=== PATIENT | male | born 1955 | race Caucasian/White ===

== ENCOUNTER 2018-07-15 01:02 | Emergency (ER) | payer SELFPAY ==
[2018-07-15 01:51] LABS: Bilirubin Negative (Negative); Blood, Urine Negative (Negative); Clarity CLEAR (Clear); Glucose, Urine (Dipstick) Negative (Negative); Leukocyte Negative (Negative); Nitrite Negative (Negative); Protein, Urine (Dipstick) Negative (Neg-Trace); Specific Gravity, Urine 1.002 (1.002-1.036); pH, Urine 6.5 (5.0-9.0)
[2018-07-15 02:08] LABS: ALT (SGPT) 71 U/L (8-55); AST (SGOT) 150 U/L (5-34); Alcohol 292 mg/dL (Less than 10); Alkaline Phosphatase 254 U/L (40-150); Anion Gap 12 mmol/L (10-20); BUN (Urea Nitrogen) 4 mg/dL (8.4-25.7); Bilirubin, Total 2.7 mg/dL (0.2-1.2); Calc. Creatinine Clearance 0 mL/min (70-130); Calcium 8.1 mg/dL (7.8-10.44); Carbon Dioxide 20 mmol/L (23-31); Chloride 107 mmol/L (98-107); Estimated GFR-MDRD Greater than 90; Globulin 5.1 g/dL (2.4-3.5); Glucose 118 mg/dL (80-115); Lipase 149 U/L (8-78); Magnesium 1.6 mg/dL (1.6-2.6); Potassium 3.7 mmol/L (3.5-5.1); Protein, Total 8.1 g/dL (5.8-8.1); Sodium 135 mmol/L (136-145)
[2018-07-15 02:12] LABS: CKMB 4.1 ng/mL (0-6.6); Troponin I Less than 0.010 ng/mL (< 0.028)
[2018-07-15 02:20] LABS: #Eosinphils 0.3 thou/uL (0.0-0.7); #Lymphocytes 2.6 thou/uL (1.20-3.40); #Monocytes 0.4 thou/uL (0.11-0.59); #Neutrophils 2.5 thou/uL (1.40-6.50); %Basophils 0.6 % (0.0-1.0); %Eosinophils 4.6 % (0.0-10.0); %Lymphocytes 45.5 % (21.0-51.0); %Monocytes 6.3 % (0.0-10.0); Hemoglobin 12.2 g/dL (14.0-18.0); MDiff Complete? YES; Macrocytosis SLIGHT = 6-15 cells (100X) (0-5/hpf); Mean Corpuscular HGB CONC 33.9 g/dL (32.0-36.0); Mean Corpuscular Hemoglobin 38.4 pg (27.0-31.0); Mean Platelet Volume 7.8 fL (7.4-10.4); PLT Morphology Comment Appears Decreased; Platelet Count 72 thou/uL (130-400); RBC Distribution Width 14.3 % (11.5-14.5); Red Blood Cell (RBC) Count 3.17 mill/uL (4.70-6.10); White Blood Cell (WBC) Count 5.7 thou/uL (4.8-10.8)
--- NOTE | 2018-07-15 07:46 | RAD ---
CHEST 1 VIEW: HISTORY: Chest pain and swelling. COMPARISON: Chest radiograph 04/14/17. FINDINGS: The lungs are without focal airspace opacity, pneumothorax, or effusion. Cardiac silhouette and medi astinal contours are similar. IMPRESSION: No acute intrathoracic abnormality. POS: [facility]
--- NOTE | 2018-07-16 13:47 | EKG ---
Test Reason : EDEMA Blood Pressure : / mmHG Vent. Rate : 074 BPM Atrial Rate : 074 BPM P-R Int : 180 ms QRS Dur : 102 ms QT Int : 432 ms P-R-T Axes : 060 055 041 degrees QTc Int : 479 ms Normal sinus rhythm Normal ECG Confirmed by SHRUTHI LANE D.O. ([id number]), image editor JAMIL BURNS ([id number]) on 07/16/2018 1:47:32 PM Referred By: DOMINGO Confirmed By:SHRUTHI LANE D.O.
== END 2018-07-15 05:52 | disposition home or self-care (01) ==
LOC: ERS 01:02
DX: R60.0 Localized edema (principal); F10.129 Alcohol abuse with intoxication, unspecified; Y90.8 Blood alcohol level of 240 mg/100 ml or more; Z87.891 Personal history of nicotine dependence
CPT/HCPCS: 36415; 71045; 80053; 80307; 81003; 82553; 83690; 83735; 83880; 84484; 85025; 93005

== ENCOUNTER 2018-08-19 05:10 | Emergency (ER) | payer SELFPAY ==
[2018-08-19] MEDS ORDERED: Pantoprazole 40 MG VIAL ONE (05:31)
[2018-08-19] MEDS ORDERED: Mag-Al 1200 mg/1200 mg/30 ML UDCUP ONE (05:31)
[2018-08-19] MEDS ORDERED: Lidocaine Viscous Sol 2% 15 ml UD Cup ONE (05:31)
[2018-08-19] MEDS ORDERED: Multivitamins, Adult 10 ML, Thiamine HCl 100 MG, Folic Acid 1 MG in Dextrose 5 %-0.45 %... IV SCH (05:45)
[2018-08-19 05:47] LABS: Hemoglobin 12.2 g/dL (14.0-18.0); Mean Corpuscular HGB CONC 31.9 g/dL (32.0-36.0); Mean Corpuscular Hemoglobin 37.6 pg (27.0-31.0); Mean Platelet Volume 6.8 fL (7.4-10.4); Platelet Count 103 thou/uL (130-400); RBC Distribution Width 14.3 % (11.5-14.5); Red Blood Cell (RBC) Count 3.25 mill/uL (4.70-6.10); White Blood Cell (WBC) Count 5.4 thou/uL (4.8-10.8)
[2018-08-19 05:49] LABS: ALT (SGPT) 30 U/L (8-55); AST (SGOT) 56 U/L (5-34); Albumin 2.6 g/dL (3.4-4.8); Alkaline Phosphatase 150 U/L (40-150); Anion Gap 11 mmol/L (10-20); BUN (Urea Nitrogen) 4 mg/dL (8.4-25.7); Bilirubin, Total 3.2 mg/dL (0.2-1.2); CK (CPK) 110 U/L (30-200); Calc. Creatinine Clearance 0 mL/min (70-130); Calcium 8.2 mg/dL (7.8-10.44); Carbon Dioxide 23 mmol/L (23-31); Chloride 107 mmol/L (98-107); Estimated GFR-MDRD Greater than 90; Globulin 4.6 g/dL (2.4-3.5); Glucose 100 mg/dL (80-115); Lipase 101 U/L (8-78); Potassium 3.7 mmol/L (3.5-5.1); Protein, Total 7.2 g/dL (5.8-8.1); Sodium 137 mmol/L (136-145)
[2018-08-19 05:49] LABS: Acetaminophen Less than 6.0 mcg/mL (10.0-30.0); Alcohol 261 mg/dL (Less than 10); Salicylate Less than 8.0 mg/dL (15.0-30.0)
[2018-08-19 05:53] LABS: CKMB 2.6 ng/mL (0-6.6); Troponin I Less than 0.010 ng/mL (< 0.028)
[2018-08-19 06:59] LABS: Band 2 % (5-11); Eosinophils 5 % (0-10); Lymphocytes 59 % (21-51); MDiff Complete? YES; Macrocytosis MODERATE=16-30 cells (100X) (0-5/hpf); Monocytes 5 % (0-10); Neutrophil 29 % (42-75); PLT Morphology Comment Appears Decreased
--- NOTE | 2018-08-19 08:32 | RAD ---
AP CHEST: History: Nausea, vomiting. Date: 08-19-18 Comparison: 07-15-18 FINDINGS: AP chest demonstrates some calcification of the aorta. Some minimal areas of patchy density is presen t in the left lung base compatible with atelectasis or patchy pneumonia. This appears to have develop ed since the previous comparison exam. No other significant intrathoracic abnormalities seen. IMPRESSION: Area of patchy density in the left lung base compatible with atelectasis or pneumonia. Otherwise unre markable AP chest. POS: [facility]
--- NOTE | 2018-08-19 09:28 | CT ---
CT OF THE ABDOMEN AND PELVIS WITH IV CONTRAST: Date: 08/19/18 INDICATION: History of abdominal pain and back pain. COMPARISON: None. FINDINGS: There is a cirrhotic morphology to the liver. There are mildly prominent varicosities seen adjacent t o esophagus. There are mild size perisplenic varicosities. The spleen is within normal limits. There is mild scattered ascites. Gallbladder is mildly distended with a small intraluminal stone. The pancreas and adrenal glands appear within normal limits. The kidneys are normal appearing. There are mild vascular calcifications involving the abdominal aorta. There are a few mildly prominent loops of small bowel involving the jejunum without a definite transi tional zone. There is a normal appendix in the right lower quadrant of the abdomen. There is free fluid in the pelvis. The bladder, rectum, and perirectal soft tissues are unremarkable. There are calcifications of the vas deferens. There are scattered diverticula involving the colon. There are scattered degenerative and osteoarthritic changes. IMPRESSION: 1. Mildly prominent loops of jejunum are suspicious for an enteritis. No overt changes to suggest viet wel obstruction. 2. 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 There is also mild ascites. 3. Mild to moderate distention of the gallbladder with an intraluminal stone. 4. Colonic diverticulosis. POS: [facility]
--- NOTE | 2018-08-19 11:29 | ULT ---
ULTRASOUND GALLBLADDER RIGHT UPPER QUADRANT: History: Pain. Comparison: CT abdomen/pelvis same day. FINDINGS: The liver measures 13.7 cm in length. Gallbladder is distended with multiple stones which are mobile. Gallbladder wall thickness is just over 3 mm. Sonographic Blanton sign is negative. Common bile duct is normal measuring 3 mm. Visualized portions of the pancreas are unremarkable. The right kidney measures 9.4 x 5.4 x 5.4 cm. IMPRESSION: 1. Distended gallbladder with mobile stones. Negative sonographic Blanton's sign. Correlate with NPO s tatus. Early cholecystitis is a possibility although it is felt somewhat less likely, unless the senia ent has eaten recently. 2. Pericholecystic fluid may be congestive changes from hepatic dysfunction. POS: [facility]
[2018-08-19] MEDS ORDERED: ISOVUE-370 76%-LOCM 1 ML ONE (12:46)
--- NOTE | 2018-08-22 17:37 | EKG ---
Test Reason : ABD PAIN Blood Pressure : / mmHG Vent. Rate : 078 BPM Atrial Rate : 078 BPM P-R Int : 176 ms QRS Dur : 098 ms QT Int : 424 ms P-R-T Axes : 063 041 037 degrees QTc Int : 483 ms Normal sinus rhythm Prolonged QT Abnormal ECG Confirmed by GAIL SERRATO, FRITZ ([id number]), editor sound JAMIL BURNS ([id number]) on 08/22/2018 5:36:51 PM Referred By: Confirmed By:FRITZ REYNOLDS MD
== END 2018-08-19 11:05 | disposition home or self-care (01) ==
LOC: ERS 05:10
DX: K80.20 Calculus of gallbladder without cholecystitis without obstruction (principal); F10.10 Alcohol abuse, uncomplicated; K74.60 Unspecified cirrhosis of liver; K57.30 Diverticulosis of large intestine without perforation or abscess without bleeding; Z87.891 Personal history of nicotine dependence
CPT/HCPCS: 36415; 71045; 74177; 76705; 80053; 80307; 82553; 83605; 83690; 84484; 85025; 93005; 96365; 96366; C9113; J3411; J7042

== ENCOUNTER 2018-10-28 03:05 | Emergency (ER) | payer SELFPAY ==
[2018-10-28 03:56] LABS: Hemoglobin 12.9 g/dL (14.0-18.0); Mean Corpuscular HGB CONC 33.9 g/dL (32.0-36.0); Mean Corpuscular Hemoglobin 39.1 pg (27.0-31.0); RBC Distribution Width 14.8 % (11.5-14.5); White Blood Cell (WBC) Count 4.9 thou/uL (4.8-10.8)
[2018-10-28 04:07] LABS: ALT (SGPT) 45 U/L (8-55); AST (SGOT) 101 U/L (5-34); Albumin 2.5 g/dL (3.4-4.8); Alkaline Phosphatase 226 U/L (40-150); Anion Gap 10 mmol/L (10-20); BUN (Urea Nitrogen) 4 mg/dL (8.4-25.7); Bilirubin, Total 3.5 mg/dL (0.2-1.2); Calc. Creatinine Clearance 0 mL/min (70-130); Calcium 8.5 mg/dL (7.8-10.44); Carbon Dioxide 24 mmol/L (23-31); Chloride 108 mmol/L (98-107); Estimated GFR-MDRD 90; Globulin 4.8 g/dL (2.4-3.5); Glucose 112 mg/dL (80-115); Potassium 3.5 mmol/L (3.5-5.1); Protein, Total 7.3 g/dL (5.8-8.1); Sodium 138 mmol/L (136-145)
[2018-10-28 04:23] LABS: #Basophils 0.1 thou/uL (0.0-0.2); #Eosinphils 0.4 thou/uL (0.0-0.7); #Lymphocytes 2.4 thou/uL (1.20-3.40); #Monocytes 0.5 thou/uL (0.11-0.59); #Neutrophils 1.5 thou/uL (1.40-6.50); %Basophils 2.1 % (0.0-1.0); %Eosinophils 8.3 % (0.0-10.0); %Lymphocytes 49.1 % (21.0-51.0); %Monocytes 9.4 % (0.0-10.0); MDiff Complete? YES; Macrocytosis SLIGHT = 6-15 cells (100X) (0-5/hpf); Mean Platelet Volume 7.2 fL (7.4-10.4); PLT Morphology Comment Appears Decreased; Platelet Count 104 thou/uL (130-400)
[2018-10-28 06:19] LABS: HBCM Index 0.12 S/CO (0-0.79); HBSAg Index 0.22 S/CO (0-0.99); Hep A IgM AB Non-Reactive (NonReactive); Hep A IgM S/CO 0.19 S/CO (0-0.79); Hep B Surf Ag Non-Reactive S/CO (NonReactive); Hep C IgG Ab Non-Reactive (NonReactive); Hepatitis B Core IgM Abs Non-Reactive (NonReactive)
--- NOTE | 2018-10-28 08:46 | RAD ---
TWO VIEWS OF THE LEFT HIP: COMPARISON: None. HISTORY: Left hip pain after a fall. FINDINGS: Two views of the left hip show no evidence of acute fracture or dislocation. No degenerative changes are seen. Mild soft tissue swelling is present. IMPRESSION: No evidence of acute osseous abnormality. POS: [facility]
--- NOTE | 2018-10-28 08:47 | RAD ---
SINGLE VIEW OF THE CHEST: COMPARISON: 08/19/2018. HISTORY: Left hip pain after a fall. FINDINGS: A single view of the chest shows a normal-size cardiomediastinal silhouette. Atelectasis is seen in the left lung base. Atherosclerotic calcifications are seen in the aorta. There is no evidence of c onsolidation, mass, or pleural effusion. Degenerative changes are seen in the spine. IMPRESSION: No evidence of acute cardiopulmonary disease. POS: [facility]
--- NOTE | 2018-10-28 08:59 | RAD ---
THREE VIEWS LEFT FOOT: HISTORY: Left foot pain after a fall. FINDINGS: Three views left foot show no evidence of acute fracture or dislocation. Mild diffuse soft tissue sw elling is seen. No degenerative changes are present. IMPRESSION: No evidence of acute osseous abnormality. POS: [facility]
--- NOTE | 2018-10-31 13:28 | EKG ---
Test Reason : Blood Pressure : / mmHG Vent. Rate : 105 BPM Atrial Rate : 105 BPM P-R Int : 170 ms QRS Dur : 096 ms QT Int : 378 ms P-R-T Axes : 030 042 036 degrees QTc Int : 499 ms Sinus tachycardia with Premature atrial complexes Otherwise normal ECG Confirmed by VANESA RICE DO ([id number]), news copy editor GAVIN GIBSON ([id number]) on 10/31/2018 1:27:43 PM Referred By: Confirmed By:VANESA RICE DO
== END 2018-10-28 18:43 | disposition home or self-care (01) ==
LOC: ERS 03:05
DX: S70.02XA Contusion of left hip, initial encounter (principal); F10.10 Alcohol abuse, uncomplicated; W19.XXXA Unspecified fall, initial encounter; Y92.009 Unspecified place in unspecified non-institutional (private) residence as the place of occurrence of the external cause
CPT/HCPCS: 36415; 71045; 80053; 80074; 80307; 83690; 83880; 84484; 85025; 93005

== ENCOUNTER 2022-07-06 06:56 | Emergency (ER) | payer MEDICARE ==
[2022-07-06 07:59] LABS: ALT (SGPT) 16 U/L (8-55); AST (SGOT) 35 U/L (5-34); Albumin 3.4 g/dL (3.4-4.8); Alkaline Phosphatase 131 U/L (40-110); Anion Gap 17 mmol/L (10-20); BUN (Urea Nitrogen) 5 mg/dL (8.4-25.7); Bilirubin, Total 2.7 mg/dL (0.2-1.2); Calc. Creatinine Clearance 0 mL/min (70-130); Calcium 8.8 mg/dL (7.8-10.44); Carbon Dioxide 20 mmol/L (23-31); Chloride 107 mmol/L (98-107); Estimated GFR 91; Globulin 4.2 g/dL (2.4-3.5); Glucose 100 mg/dL (80-115); Potassium 4.2 mmol/L (3.5-5.1); Protein, Total 7.6 g/dL (5.8-8.1); Sodium 140 mmol/L (136-145)
[2022-07-06 08:23] LABS: #Basophils 0.1 thou/uL (0.0-0.2); #Eosinphils 0.1 thou/uL (0.0-0.7); #Lymphocytes 1.5 thou/uL (1.20-3.40); #Monocytes 0.3 thou/uL (0.11-0.59); #Neutrophils 1.2 thou/uL (1.40-6.50); %Basophils 1.9 % (0.0-1.0); %Eosinophils 2.7 % (0.0-10.0); %Lymphocytes 48.6 % (21.0-51.0); %Monocytes 8.7 % (0.0-10.0); %Neutrophils 38.2 % (42.0-75.0); Hemoglobin 16.5 g/dL (14.0-18.0); MDiff Complete? YES; Macrocytosis SLIGHT = 6-15 cells (100X) (0-5/hpf); Mean Corpuscular HGB CONC 32.8 g/dL (32.0-36.0); Mean Corpuscular Hemoglobin 35.6 pg (27.0-31.0); Mean Platelet Volume 9.2 fL (7.4-10.4); Platelet Clumps MODERATE; Platelet Count 113 thou/uL (130-400); Platelet Morphology Comment Appears Adequate; RBC Distribution Width 13.2 % (11.5-14.5); Red Blood Cell (RBC) Count 4.65 mill/uL (4.70-6.10); White Blood Cell (WBC) Count 3.2 thou/uL (4.8-10.8)
[2022-07-06] MEDS ORDERED: Iopamidol-370 76% 500 ML 1 ML ONE (09:47)
== END 2022-07-06 09:25 | disposition home or self-care (01) ==
LOC: ERS 06:56
DX: R06.02 Shortness of breath (principal); Z87.891 Personal history of nicotine dependence
CPT/HCPCS: 71045; 71275; 80053; 83880; 84484; 85025; 85379; 93005; Q9967